=== PATIENT | male | born 1975 | race African-American/Black ===

== ENCOUNTER 2023-01-19 15:52 | Emergency (ER) | payer MEDICARE, MEDICAID ==
[~2023-01-19] VITALS: Ht 185.4 cm; Wt 120.0 kg
[2023-01-19 15:56] VITALS: BP 154/96
== END 2023-01-19 19:24 | disposition home or self-care (01) ==
LOC: ER 15:52
DX: R04.0 Epistaxis (principal); Z53.21 Procedure and treatment not carried out due to patient leaving prior to being seen by health care provider
CPT/HCPCS: 99281